=== PATIENT | female | born 1980 | race African-American/Black ===

== ENCOUNTER 2016-06-30 21:53 | Emergency (ER) | payer MEDICAID ==
[2016-06-30] MEDS ORDERED: AMOXICILLIN/POTASSIUM CLAV 875MG/125MG TABLET PO ONE (22:09)
[2016-06-30] MEDS ORDERED: NAPROXEN 250 MG TABLET PO ONE (22:09)
--- NOTE | 2016-06-30 22:09 | Emergency Department Record ---
History of Present Illness - General Chief complaint: ENT Stated complaint: RT EAR PAIN Time Seen by Provider: 06/30/16 22:06 Source: Patient Mode of Arrival: Ambulatory Limitations: No limitations - History of Present Illness Initial comments: 36 yo female presents to ED with a CC of non-productive cough symptoms and right ear pain that began 2 days ago. Patient denies fevers, chills, nausea, or vomiting symptoms. Patient denies health problems at her baseline. MD complaint: Ear pain Onset/Timin -: Days(s) Location: R ear Severity: Mild Severity scale (1-10): >10 Quality: Other Consistency: Constant, Other Improves with: None Worsens with: None Context-Epistaxis: Other Context- Dental: Other Context- Ear: Other Associated Symptoms: Cough, Fever - Related Data Home Medications Medication Instructions Recorded Confirmed Last Taken Acetaminophen with Codeine 1 tab PO Q4H 06/30/16 06/30/16 Unknown [Tylenol #3] Chrom Joanne/Brindal Mcintosh [Appetite 1 each PO 06/30/16 Unknown Control Tablet] Oxymetazoline HCl [Nasal [place]] 30 ml NS 06/30/16 Unknown Zolpidem Tartrate [Ambien] 5 mg PO QHS 06/30/16 06/30/16 Unknown Previous Rx's Medication Instructions Recorded Amoxicillin/Potassium Clav 1 tab PO BID #19 tab 06/30/16 [Augmentin 875-125 Tablet] Naproxen [Naprosyn] 500 mg PO Q12H #20 tab 06/30/16 Allergies Allergy/AdvReac Type Severity Reaction Status Date / Time No Known Drug Allergies Allergy Verified 06/30/16 22:01 Travel Screening - Travel/Exposure Within Last 30 Days Have you traveled within the last 30 days?: No - Travel/Exposure Within Last Year Have you traveled outside the [place] in the last year?: No - Additonal Travel Details Have you been exposed to anyone with a communicable illness?: No - Travel Symptoms Symptom Screening: None Review of Systems Constitutional: Denies: Chills, Fever, Malaise, Night sweats Eyes: Denies: Eye discharge, Eye pain ENT: Reports: Ear pain. Denies: Dental pain, Epistaxis, Throat pain Respiratory: Reports: Cough. Denies: Dyspnea Cardiovascular: Denies: Chest pain, Dyspnea on exertion, Palpitations Endocrine: Denies: Fatigue, Heat or cold intolerance Gastrointestinal: Denies: Abdominal pain, Nausea, Vomiting Genitourinary: Denies: Dysuria, Frequency, Hematuria Musculoskeletal: Denies: Arthralgia, Back pain, Gout, Joint swelling Skin: Denies: Bruising, Change in color Neurological: Denies: Abnormal gait, Confusion, Headache, Seizure Psychiatric: Denies: Anxiety Hematological/Lymphatic: Denies: Anemia, Blood Clots Past Medical History - SOCIAL HISTORY Smoking Status: Never smoker Alcohol Use: None Drug Use: None - RESPIRATORY Hx Respiratory Disorders: No - CARDIOVASCULAR Hx Cardio Disorders: No - NEURO Hx Neuro Disorders: No - GI Hx GI Disorders: No - Hx Genitourinary Disorders: No - ENDOCRINE Hx Endocrine Disorders: No - MUSCULOSKELETAL Hx Musculoskeletal Disorders: No - PSYCH Hx Psych Problems: No - HEMATOLOGY/ONCOLOGY Hx Hematology/Oncology Disorders: No Family Medical History Any Significant Family History?: No Physical Exam - General General Appearance: Alert, Oriented x3, Cooperative, No acute distress Limitations: No limitations - Head Head exam: Atraumatic, Normocephalic, Normal inspection Head exam detail: negative: Abrasion, Contusion, Sotelo's sign, General tenderness, Hematoma, Laceration - Eye Eye exam: Normal appearance. negative: Conjunctival injection, Periorbital swelling, Periorbital tenderness, Scleral icterus - ENT Ear exam: Other (Right TM dull, erythematous on examination). negative: Auricular hematoma, Auricular trauma Nasal Exam: negative: Active bleeding, Discharge, Dried blood, Foreign body Mouth exam: negative: Drooling, Laceration, Muffled voice, Tongue elevation - Neck Neck exam: Normal inspection. negative: Meningismus, Tenderness - Respiratory Respiratory exam: Normal lung sounds bilaterally. negative: Respiratory distress, Rhonchi, Stridor, Wheezes - Cardiovascular Cardiovascular Exam: Regular rate, Normal rhythm, Normal heart sounds - GI/Abdominal GI/Abdominal exam: Soft. negative: Rebound, Rigid, Tenderness - Rectal Rectal exam: Deferred - exam: Deferred - Extremities Extremities exam: Normal inspection. negative: Calf tenderness, Pedal edema, Tenderness - Back Back exam: Reports: Normal inspection. Denies: CVA tenderness (R), CVA tenderness (L) - Neurological Neurological exam: Alert, Normal gait, Oriented X3 - Psychiatric Psychiatric exam: Normal affect, Normal mood - Skin Skin exam: Normal color. negative: Abrasion Type of lesion: negative: abrasion Course Vital Signs 06/30/16 21:56 Temperature 99.4 F Pulse Rate 125 H Respiratory 20 Rate Blood Pressure 178/132 Pulse Ox 99 - Reevaluation(s) Reevaluation #1: 06/30/16 22:13 Patient's right ear appears c/w otitis media. Will initiate Augmentin for her symptoms. Patient was also counseled regarding the need for follow-up regarding her blood pressure and risk of stroke and CAD that can result for untreated HTN. Patient verbalizes understanding, and appears stable for discharge at this time. Disposition Disposition: Discharge Clinical Impression: Otitis media Qualifiers: Otitis media type: unspecified Laterality: right Chronicity: unspecified Qualified Code(s): H66.91 - Otitis media, unspecified, right ear Disposition: Home, Self-Care Condition: (2) Stable Instructions: Otitis Media (ED) Additional Instructions: Return to ED if your symptoms worsen or if you have any concerns. Augmentin and Naprosyn as directed. Follow-up with your family doctor in 3-5 days as directed. Prescriptions: Amoxicillin/Potassium Clav [Augmentin 875-125 Tablet] 1 tab PO BID #19 tab Naproxen [Naprosyn] 500 mg PO Q12H #20 tab. Forms: Patient Portal Access Time of Disposition: 22:09
== END 2016-06-30 22:26 | disposition home or self-care (01) ==
LOC: ER 21:53
DX: H66.91 Otitis media, unspecified, right ear (principal); I10 Essential (primary) hypertension
CPT/HCPCS: 99282

== ENCOUNTER 2016-07-19 00:25 | Emergency (ER) | payer MEDICAID ==
--- NOTE | 2016-07-19 00:44 | Emergency Department Record ---
History of Present Illness - General Chief Complaint: Fever Stated Complaint: FEVER/CHILLS Time Seen by Provider: 07/19/16 00:43 Source: Patient Mode of Arrival: Ambulatory Limitations: No limitations - History of Present Illness Initial Comments: The patient is here due to a 2 day hx of a low grade fever, chills, malaise, ST and R ear pain. She also has had a mild to moderate BAILEY all over that is consistent with her chronic BAILEY's when she gets sick. The patient was here in the ER 3 weeks ago and diagnosed with a R ear infection. She did take Augmentin for it and it did get better. On that visit also her BP was very elevated and she has recently stopped her Atenolol that she is supposed to take. Complaint: Fever, Malaise Onset/Timin -: Days(s) Maximum Temperature: 100.3 F Temperature Source: Oral Treatments Prior to Arrival: None - Related Data Home Medications Medication Instructions Recorded Confirmed Last Taken Acetaminophen with Codeine 1 tab PO Q4H 06/30/16 07/19/16 1 Day Ago [Tylenol #3] Chrom Joanne/Brindal Mcintosh [Appetite 1 each PO DAILY 06/30/16 07/19/16 1 Day Ago Control Tablet] Oxymetazoline HCl [Nasal [place]] 30 ml NS DAILY 06/30/16 07/19/16 1 Day Ago Zolpidem Tartrate [Ambien] 5 mg PO QHS 06/30/16 07/19/16 1 Day Ago Previous Rx's Medication Instructions Recorded Naproxen [Naprosyn] 500 mg PO Q12H #20 tab 06/30/16 Cefdinir [Omnicef] 300 mg PO BID #20 cap 07/19/16 Prednisone [Prednisone 20Mg] 40 mg PO DAILY #6 tab 07/19/16 Allergies Allergy/AdvReac Type Severity Reaction Status Date / Time No Known Drug Allergies Allergy Verified 07/19/16 00:37 Travel Screening - Travel/Exposure Within Last 30 Days Have you traveled within the last 30 days?: No - Travel/Exposure Within Last Year Have you traveled outside the [place] in the last year?: No - Additonal Travel Details Have you been exposed to anyone with a communicable illness?: No - Travel Symptoms Symptom Screening: None Review of Systems Constitutional: Reports: Chills, Fever, Malaise Eyes: Denies: Eye discharge, Eye pain ENT: Reports: Ear pain (R only.), Throat pain. Denies: Congestion Respiratory: Denies: Cough, Dyspnea Cardiovascular: Denies: Arrhythmia, Chest pain Past Medical History - SOCIAL HISTORY Smoking Status: Never smoker Alcohol Use: None Drug Use: None - RESPIRATORY Hx Respiratory Disorders: No - CARDIOVASCULAR Hx Cardio Disorders: Yes Hx Hypertension: Yes - NEURO Hx Neuro Disorders: No - GI Hx GI Disorders: No - Hx Genitourinary Disorders: No - ENDOCRINE Hx Endocrine Disorders: No - MUSCULOSKELETAL Hx Musculoskeletal Disorders: No - PSYCH Hx Psych Problems: No - HEMATOLOGY/ONCOLOGY Hx Hematology/Oncology Disorders: No Family Medical History Any Significant Family History?: Yes Physical Exam - General General Appearance: Alert, Oriented x3, Cooperative, No acute distress - Head Head exam: Atraumatic, Normocephalic, Normal inspection - Eye Eye exam: Normal appearance, PERRL, EOMI - ENT ENT exam: negative: Normal exam, Normal orophraynx, TM's normal bilaterally ( The R TM is inflamed with an effusion.) Ear exam: Normal external inspection, Other (There is no mastoid tenderness or swelling.). negative: External canal tenderness Throat exam: Tonsillar erythema, Tonsillomegaly, Tonsillar exudate (R only.), Other (There are no speech changes.). negative: Normal inspection, R peritonsillar mass, L peritonsillar mass - Neck Neck exam: Normal inspection, Full ROM, Other. negative: Lymphadenopathy, Meningismus (The neck is very supple with no meningismus.), Tenderness - Respiratory Respiratory exam: Normal lung sounds bilaterally. negative: Respiratory distress - Cardiovascular Cardiovascular Exam: Regular rate, Normal rhythm, Normal heart sounds - GI/Abdominal GI/Abdominal exam: Soft, Normal bowel sounds. negative: Tenderness - Extremities Extremities exam: Normal inspection, Full ROM, Normal capillary refill. negative: Tenderness - Neurological Neurological exam: Alert, Normal gait. negative: Abnormal gait, Motor sensory deficit - Psychiatric Psychiatric exam: negative: Agitated, Anxious, Depressed Course Vital Signs 07/19/16 00:40 Temperature 98.3 F Pulse Rate [ 132 H Pulse Ox Probe] Respiratory 20 Rate Blood Pressure 184/124 [Left Arm] Pulse Ox 100 - Reevaluation(s) Reevaluation #1: The patient is doing much better at this time. Her BAILEY has resolved and she is ambulating with no pain or discomfort except for her throat. She is resting comfortably. 07/19/16 02:06 Reevaluation #2: The patient is doing much better at this time. Her temp is normal and her BP much improved. She has no BAILEY, neck pain or back pain and her ST is much improved. On exam her neck is very supple and there is a neg Kernigs and Brudsinski's exams. The patient feels comfortable going home and will F/U with her PCP early this week. I also discussed with her at length the need to take her BP medicine. 07/19/16 02:40 Medical Decision Making - Lab Data Result diagrams: 07/19/16 01:07 07/19/16 01:07 Disposition Disposition: Discharge Clinical Impression: Pharyngitis Qualifiers: Pharyngitis/tonsillitis etiology: unspecified etiology Qualified Code(s): J02.9 - Acute pharyngitis, unspecified Hypertension Qualifiers: Hypertension type: essential hypertension Qualified Code(s): I10 - Essential ( primary) hypertension Disposition: Home, Self-Care Condition: (1) Good Instructions: Pharyngitis (ED) Additional Instructions: Please take Tylenol or Motrin for pain and continue the Prednisone as directed. Start the Cefdinir as directed and continue to take your BP medicines. Please see your PCP early this week. Return to the ER for any increased pain, fever, or vomiting. Prescriptions: Cefdinir [Omnicef] 300 mg PO BID #20 cap Prednisone [Prednisone 20Mg] 40 mg PO DAILY #6 tab Forms: Patient Portal Access Time of Disposition: 02:39
[2016-07-19] MEDS ORDERED: 0.9 % SODIUM CHLORIDE 1,000 ML BAG IV ONE (00:50)
[2016-07-19] MEDS ORDERED: ACETAMINOPHEN 325 MG TAB PO ONE (00:51)
[2016-07-19] MEDS ORDERED: ATENOLOL 50 MG TABLET PO ONE (00:52)
[2016-07-19] MEDS ORDERED: ATENOLOL 25 MG TABLET PO ONE (00:56)
[2016-07-19] MEDS ORDERED: ONDANSETRON HCL IV 4 MG/2 ML VIAL IVP ONE (01:09)
[2016-07-19 01:17] LABS: HEMATOCRIT 41.1 % (35.0-47.0); HEMOGLOBIN 13.3 gm/dl (11.6-16.0); MEAN CELL VOLUME 82.9 fl (81-97); MEAN CORPUSCULAR HEMOGLOBIN 26.8 pg (27-33); MEAN CORPUSCULAR HGB CONC 32.4 g/dl (32-36); MEAN PLATELET VOLUME 10.8 fl (7.4-10.4); PLATELET COUNT 215 K/uL (130-400); RED BLOOD COUNT 4.96 M/uL (3.80-5.40); RED CELL DISTRIBUTION WIDTH 13.8 % (11.5-14.5)
[2016-07-19 01:39] LABS: ALB/GLOB RATIO 1.2 (1.1-1.8); ALBUMIN 4.3 gm/dL (3.5-5.0); ALKALINE PHOSPHATASE 66 U/L (38-126); ALT/SGPT 34 U/L (9-52); ANION GAP 14.9 (7-16); AST/SGOT 26 U/L (14-36); BILIRUBIN,TOTAL 0.86 mg/dL (0.2-1.3); BLOOD UREA NITROGEN 8 mg/dL (7-17); CARBON DIOXIDE 23.1 mmol/L (22-30); CREATININE 0.9 mg/dL (0.52-1.04); EST GLOMERULAR FILTRATION RATE > 60 ml/min; GLUCOSE,RANDOM 102 mg/dL (70-110); TOTAL PROTEIN 7.8 gm/dL (6.3-8.2)
[2016-07-19] MEDS ORDERED: KETOROLAC 30 MG/ML VIAL IVP ONE (01:43)
[2016-07-19] MEDS ORDERED: CEFTRIAXONE SODIUM 1 GM in 0.9 % SODIUM CHLORIDE 100ML 100 ML IVPB ONE (01:51)
[2016-07-19] MEDS ORDERED: PREDNISONE 20 MG TAB PO ONE (02:06)
== END 2016-07-19 02:49 | disposition home or self-care (01) ==
LOC: ER 00:25
DX: J02.9 Acute pharyngitis, unspecified (principal); R51 Headache; R50.81 Fever presenting with conditions classified elsewhere; I10 Essential (primary) hypertension; Z91.14 Patient's other noncompliance with medication regimen
CPT/HCPCS: 99284 ×2; 96365; 96375; 86140; 80053; 87880; 86308; 85027; J1885; J2405; J7512; J7030